=== PATIENT | female | born 1960 | race Caucasian/White ===

== ENCOUNTER → 2016-12-07 | Outpatient (CLI) | payer OTHER | LOC: FIMAGING 12:39 | PROVIDERS: ATTEND Internal Medicine | DX: Z12.31 Encounter for screening mammogram for malignant neoplasm of breast (principal) | CPT/HCPCS: G0202 ==

== ENCOUNTER 2018-01-20 16:15 | Emergency (ER) | payer OTHER ==
[2018-01-20 16:34] VITALS: BP 120/88
[2018-01-20] MEDS ORDERED: CHLORDIAZEPOXIDE 25MG PREPK#6 BTL TAKEHOME ONE (16:41)
[2018-01-20] MEDS ORDERED: chlordiazePOXIDE 25 MG CAP PO ONE (16:41)
--- NOTE | 2018-01-20 16:43 | EDPHY ---
H & P Smoking Status: Never smoked Time Seen by Provider: 01/20/18 16:37 HPI/ROS: CHIEF COMPLAINT: "I want to be sober" HISTORY OF PRESENT ILLNESS: 57-year-old female history of alcoholism arrives with her , last drink of alcohol 3:00 p.m. Today, she would like to remain sober from alcohol. Denies suicidal or homicidal ideation. Denies hallucination. Denies seizure. Denies complaints of physical pain. REVIEW OF SYSTEMS: A ten point review of systems was performed and is negative with the exception of the items mentioned in the HPI PAST MEDICAL & SURGICAL HISTORY: Alcoholism SOCIAL HISTORY:Last drink of alcohol 3:00 p.m. Today PHYSICAL EXAM (Prior to examination, patient consented to physical exam, hands were washed and my usual and customary physical exam procedures followed) 1) GENERAL: Well-developed, well-nourished, alert and oriented. Appears to be in no acute distress. Answering questions appropriately. 2) HEAD: Normocephalic, atraumatic 3) HEENT: Pupils equal, round, reactive to light bilaterally. Sclera anicteric. 4) NECK: Full range of motion, no meningeal signs. 5) LUNGS: Clear auscultation bilaterally, no wheezes, no rhonchi, no retractions. 6) HEART: Regular rate and rhythm, no murmur, no heave, no gallop. 7) ABDOMEN: No guarding, no rebound, no focal tenderness, negative McBurney's, negative Gamino's, negative Rovsing's, negative peritoneal sign, 8) MUSCULOSKELETAL: Moving all extremities, no focal areas of tenderness, no obvious trauma. No peripheral edema or discoloration. 9) BACK: No CVA tenderness, no midline vertebral tenderness, no fluctuance, no step-off, no obvious trauma, no visual or palpable abnormality. 10) SKIN: No rash, no petechiae. 11) Psychiatric: Patient is oriented X 3, there is no agitation. DIFFERENTIAL DIAGNOSIS: In no particular order including but not limited to alcohol withdrawal, alcohol intoxication, alcoholic hallucinosis, delirium tremens (Gloria,Deidra Camilla) Constitutional: Initial Vital Signs Temperature (C) 36.9 C 01/20/18 16:33 Heart Rate 84 01/20/18 16:33 Respiratory Rate 16 01/20/18 16:33 Blood Pressure 120/88 H 01/20/18 16:33 O2 Sat (%) 96 01/20/18 16:33 O2 Delivery Mode Room Air Allergies/Adverse Reactions: No Known Allergies Allergy (Unverified 01/20/18 16:32) Home Medications: Medication Instructions Recorded Escitalopram Oxalate 01/20/18 Levothyroxine 01/20/18 MDM/Departure - MDM Medications Given: Discontinued Medications Chlordiazepoxide (Librium 25 Mg Prepack#6) 1 btl TAKEHOME EDNOW ONE Stop: 01/20/18 16:42 Last Admin: 01/20/18 16:53 Dose: 1 btl Chlordiazepoxide HCl (Librium) 25 mg PO EDNOW ONE Stop: 01/20/18 16:42 Last Admin: 01/20/18 16:53 Dose: 25 mg ED Course/Re-evaluation: 4:44 p.m.: Patient is answering questions appropriately, awake alert oriented person place time events, clear speech pattern, able to ambulate without assistance. Doubt delirium tremens, doubt alcoholic encephalopathy. [facility]. I saw this patient independently based on established practice protocols. Care of patient under supervision of secondary supervising physician Dr Crook . (Deidra Castro) I did not see this patient while he she was in the emergency department. However her care was discussed with the PA while the patient was in the department. I agree with treatment plan and management (Rodney Crook) - Depart Disposition: Home, Routine, Self-Care Clinical Impression: Alcohol dependence Qualifiers: Substance use status: uncomplicated Qualified Code(s): F10.20 - Alcohol dependence, uncomplicated Condition: Good Instructions: Chlordiazepoxide (By mouth), Abuse of Alcohol (ED) Referrals: [facility] [Outside] - 01/20/18 5:00 pm
== END 2018-01-20 16:57 | disposition home or self-care (01) ==
DX: F10.20 Alcohol dependence, uncomplicated (principal)

== ENCOUNTER → 2018-06-13 | Outpatient (CLI) | payer OTHER | LOC: FIMAGING 13:22 | PROVIDERS: ATTEND Internal Medicine | DX: Z12.31 Encounter for screening mammogram for malignant neoplasm of breast (principal) ==